=== PATIENT | male | born 1985 | race Two or more races ===

== ENCOUNTER 2024-12-17 14:04 | Inpatient (IN) | payer MEDICAID ==
[~2024-12-17] VITALS: Ht 180.3 cm; Wt 124.3 kg
[2024-12-17 15:18] LABS: RED CELL DISTRIBUTION WIDTH 19.9 % (11.5-15.0); WHITE BLOOD COUNT (AUTO) 6.0 K/uL (4.3-11.0)
[2024-12-17 15:29] LABS: PLATELET COUNT (AUTO) 240 K/uL (150-450); RED BLOOD CELL COUNT(AUTO) 3.98 MIL/uL (4.5-6.0)
[2024-12-17 15:30] LABS: CALCIUM, SERUM 9.0 mg/dL (8.5-10.1); CREATININE 1.4 mg/dL (0.6-1.3); SODIUM SERUM 131 mmol/L (136-145); UREA NITROGEN, BLOOD 14 mg/dL (7-18)
[2024-12-17 15:44] LABS: NT-PRO BNP 1069 pg/mL (0-125)
[2024-12-17] MEDS ORDERED: METO2.5T7 PO (15:58)
[2024-12-17] MEDS ORDERED: ISOS40TA19 PO (15:58)
[2024-12-17] MEDS ORDERED: ATOR40TA PO (15:58)
[2024-12-17] MEDS ORDERED: RIVA10TA PO (15:58)
[2024-12-17] MEDS ORDERED: MILR20PI IV (15:58)
[2024-12-17] MEDS ORDERED: POTA-88 PO (15:58)
[2024-12-17] MEDS ORDERED: ASPI-1169 PO (15:58)
[2024-12-17] MEDS ORDERED: DIGO125T PO (15:58)
[2024-12-17] MEDS ORDERED: LEVO75TA7 PO (15:58)
[2024-12-17] MEDS ORDERED: AMIO200T5 PO (15:58)
[2024-12-17] MEDS ORDERED: HYDR-4077 PO (15:58)
[2024-12-17] MEDS ORDERED: BUME2TAB7 PO (15:58)
[2024-12-17] MEDS ORDERED: PANT40TA2 PO (15:58)
[2024-12-17] MEDS ORDERED: SPIR50TA5 PO (15:58)
[2024-12-17] MEDS ORDERED: EMPA25TA PO (15:58)
[2024-12-17] MEDS ORDERED: SOTA80TA PO (15:58)
[2024-12-17] MEDS ORDERED: NALO4SPR NS (15:58)
[2024-12-17] MEDS ORDERED: MOME0.24 IH (15:58)
[2024-12-17] MEDS ORDERED: [UNRECOGNIZED DRUG - CODE] IVP (15:58)
[2024-12-17] MEDS ORDERED: ONDANSETRON HCL/PF 4 MG/2 ML VIAL ONE (17:50)
[2024-12-17] MEDS ORDERED: MORPHINE SULFATE INJ 4 MG/ML DISP.SYRIN ONE (17:51)
[2024-12-17] MEDS: MORPHINE SULFATE INJ 2 MG/ML DISP.SYRIN IV ONE (18:00)
[2024-12-17] MEDS: ONDANSETRON HCL/PF 4 MG/2 ML VIAL IVP ONE (18:03)
[2024-12-17] MEDS ORDERED: ONDANSETRON HCL/PF 4 MG/2 ML VIAL IVP PRN (18:30)
[2024-12-17] MEDS ORDERED: Z GUARD REMEDY 4 OZ OINT TP PRN (18:30)
[2024-12-17] MEDS ORDERED: FUROSEMIDE 40 MG/4 ML VIAL IV SCH (18:30)
[2024-12-17] MEDS ORDERED: ZOLPIDEM TARTRATE 5 MG TABLET PO PRN (18:30)
[2024-12-17] MEDS ORDERED: MAG HYDROX/AL HYDROX/SIMETH 30 ML UDC PO PRN (18:30)
[2024-12-17] MEDS ORDERED: MAGNESIUM HYDROXIDE 30 ML UDC PO PRN (18:30)
[2024-12-17] MEDS: ASPIRIN EC 81 MG TABLET.DR PO SCH (19:48)
[2024-12-17] MEDS: ENOXAPARIN SODIUM 40 MG/0.4 ML DISP.SYRIN SQ SCH (19:51)
[2024-12-17 20:00] VITALS: BP 99/64; TEMP 97.9; O2SAT 98
[2024-12-17] MEDS: MIDODRINE HCL (5MG) 5 MG TABLET PO SCH (22:06)
[2024-12-17] MEDS: ACETAMINOPHEN 325 MG TABLET PO PRN (22:06)
[2024-12-17] MEDS: MORPHINE SULFATE INJ 2 MG/ML DISP.SYRIN IV PRN (23:55)
[2024-12-18] VITALS: BP 99/76; TEMP 97.5; O2SAT 97
[2024-12-18] MEDS: diphenhydrAMINE HCL ELIX 25 MG/10 ML UDC PO PRN (01:41)
[2024-12-18 04:00] VITALS: BP 101/68; TEMP 97.3; O2SAT 98
[2024-12-18 06:57] LABS: CALCIUM, SERUM 9.0 mg/dL (8.5-10.1); CREATININE 1.3 mg/dL (0.6-1.3); PHOSPHORUS 3.8 mg/dL (2.5-4.9); PLATELET COUNT (AUTO) 187 K/uL (150-450); RED BLOOD CELL COUNT(AUTO) 3.63 MIL/uL (4.5-6.0); RED CELL DISTRIBUTION WIDTH 19.2 % (11.5-15.0); SODIUM SERUM 135.0 mmol/L (136-145); UREA NITROGEN, BLOOD 16.0 mg/dL (7-18); WHITE BLOOD COUNT (AUTO) 5.6 K/uL (4.3-11.0)
[2024-12-18 08:00] VITALS: BP 102/62; TEMP 97.3; O2SAT 98
[2024-12-18] MEDS: PANTOPRAZOLE 40 MG TABLET.DR PO SCH (08:18)
[2024-12-18] MEDS: FUROSEMIDE 40 MG TABLET PO SCH (09:33)
[2024-12-18] MEDS: NITROGLYCERIN 0.4 MG/TAB BOTTLE SL PRN (11:22)
[2024-12-18 12:00] VITALS: BP 101/71; TEMP 97.9; O2SAT 98
== END 2024-12-18 12:50 | disposition left against medical advice (07) | DRG 194 ==
LOC: ER 14:13 → TELE1 18:23
DX: I13.0 Hypertensive heart and chronic kidney disease with heart failure and stage 1 through stage 4 chronic kidney disease, or unspecified chronic kidney disease (principal); K74.60 Unspecified cirrhosis of liver; E87.1 Hypo-osmolality and hyponatremia; I50.43 Acute on chronic combined systolic (congestive) and diastolic (congestive) heart failure; I42.7 Cardiomyopathy due to drug and external agent; E03.9 Hypothyroidism, unspecified; E66.9 Obesity, unspecified; K29.70 Gastritis, unspecified, without bleeding; I42.6 Alcoholic cardiomyopathy; T38.7X5A Adverse effect of androgens and anabolic congeners, initial encounter; Z95.810 Presence of automatic (implantable) cardiac defibrillator; E78.5 Hyperlipidemia, unspecified; N17.9 Acute kidney failure, unspecified; Z53.29 Procedure and treatment not carried out because of patient's decision for other reasons; Z59.00 Homelessness unspecified; F10.20 Alcohol dependence, uncomplicated; N18.9 Chronic kidney disease, unspecified; R07.9 Chest pain, unspecified; Y92.89 Other specified places as the place of occurrence of the external cause
CPT/HCPCS: 36415; 71045-TC; 80048-TC; 83735-TC; 83880; 84100-TC; 84484-TC; 85025-TC; 87081-TC; 93307-TC; 94799-TC; G0378; J1650; J1938; J2270; J2405; Q0163